=== PATIENT | male | born 1975 | race African-American/Black ===

== ENCOUNTER 2018-11-26 01:26 | Inpatient (IN) | payer OTHER ==
[~2018-11-26] VITALS: Ht 167.6 cm; Wt 149.7 kg
--- NOTE | ~2018-11-26 | HC ---
[facility] [place] [address] CONSULTATION Name: RADNAL PITT Room #: 200-I ADM IN M.R.#: [id number] Admission: 11/26/18 ������������������ Attend Phys: Liborio Wolf MD Discharge: ������������������ Date of : 79 Report #: [id number] THIS REPORT FOR: //name// CC: [facility] physician/PCP Liborio Wolf REASON FOR THE CONSULTATION: Elevated creatinine. REASON FOR THE PRESENTATION: Right-sided chest pain. HISTORY OF PRESENT ILLNESS: A 43-year-old with past medical history of hypertension that seems to be not under well control. He presented with shortness of breath and right-sided chest pain that started a few days before his presentation. This has progressively worsened. This was associated with cough. No reported hemoptysis. No previous similar episodes. No fever, no chills. No lower extremity swelling. No known cardiac history. No relieving or aggravating factors. The patient was found to have a pulmonary embolism and was admitted for further evaluation. In terms of renal function, the patient's creatinine on presentation was 2.2. He was told by his primary care physician that he did have some kidney problems 2 years ago. He had not been following up with his primary care physician regarding those issues. I am being consulted to manage his chronic kidney disease. No U/A is available. CT scan from yesterday did not reveal any kidney-related imaging issues. PAST MEDICAL HISTORY: 1. Hypertension. 2. Right lower extremity fracture. MEDICATIONS: 1. Hydrochlorothiazide. 2. Losartan. SOCIAL HISTORY: He denies drug or alcohol abuse. ALLERGIES: PENICILLIN. FAMILY HISTORY: Significant for hypertension. REVIEW OF SYSTEMS: GENERAL: No fever or chills. CARDIOVASCULAR: Significant for chest pain and shortness of breath. PULMONARY: Significant for cough and no hemoptysis. GASTROINTESTINAL: No nausea or vomiting. GENITOURINARY: No frequency, no urgency. MUSCULOSKELETAL: Occasional arthralgias and myalgias. SKIN: No rash or ulcerations. NEUROLOGIC: No headache, no dizziness. [facility] [address] [place] [address] CONSULTATION Name: RANDAL PITT [facility] Room #: 200-I [facility] IN .R.#: [id number] Admission: 11/26/18 ������������������ Attend Phys: Liborio Wolf MD Discharge: ������������������ Date of : 79 Report #: [id number] PHYSICAL EXAMINATION: GENERAL: He is alert, oriented, in no apparent distress. VITAL SIGNS: Blood pressure is 147/101. HEAD AND NECK: No jugular venous distention. CHEST: Decreased air entry bilaterally. CARDIOVASCULAR: No rub detected. ABDOMEN: Soft, nontender. EXTREMITIES: Lower extremities, no edema. LABORATORY DATA: Laboratory values reviewed. Hemoglobin is 11.7. Sodium is 140, creatinine is down to 1.7. ASSESSMENT, IMPRESSION AND PLAN: 1. Pulmonary embolism. 2. Chronic kidney disease. 3. Uncontrolled hypertension. 4. It does look like that the patient has evidence of chronic kidney disease due to uncontrolled hypertension. 5. Appropriate workup will be initiated. 6. Pulmonary embolism management. 7. Continue to hold his losartan for now. 8. Ultimately, will need to be back on losartan and hydrochlorothiazide. 9. Discontinue IV fluids. 10. Salt restrictions. 11. Cardiac echo. 12. We will continue to follow along. ��������������������������������������������� ���������������������������������������� By: ��������������������������������������������� 0821 0037 Joel Becerril MD /nt
[2018-11-26 01:36] VITALS: BP 165/90
[2018-11-26 02:25] LABS: ABSOLUTE NEUTROPHILS 5.8 thou/uL (1.4-8.2); BASOPHILS 0.8 % (0.0-2.0); EOSINOPHILS 0.8 % (0.0-3.0); HEMATOCRIT 36.5 % (42.0-52.0); HEMOGLOBIN 12.3 gm/dL (14.0-18.0); LYMPHOCYTES 17.1 % (24.0-44.0); MCH 29.1 pg (26.0-34.0); MCHC 33.8 g/dL (28.0-37.0); MCV 86.1 fL (80.0-100.0); MONOCYTES 9.6 % (1.0-8.0); PLATELET COUNT 228 thou/uL (150-400); POLYS 71.7 % (36.0-66.0); RBC 4.24 mil/uL (4.50-6.00); RDW 14.4 % (10.5-14.5); WBC 8.1 thou/uL (4.0-11.0)
[2018-11-26 02:51] LABS: BUN 22 mg/dL (7-18); CALCIUM 9.5 mg/dL (8.5-10.1); CO2 27 mmol/L (21-32); CREATININE 2.2 mg/dL (0.7-1.3); GLUCOSE 126 mg/dL (74-106); LIPASE 116 U/L (73-393)
[2018-11-26 03:06] LABS: ANION GAP 10 mmol/L (7-16); CHLORIDE 101 mmol/L (98-107); POTASSIUM 3.3 mmol/L (3.5-5.1); SODIUM 138 mmol/L (136-145); TROPONIN-I <0.06 ng/mL (<0.06)
[2018-11-26 05:46] LABS: PROTIME 9.3 Seconds (9.3-11.4)
[2018-11-26] MEDS ORDERED: HYDROCHLOROTHIA25 M2 PO (06:19)
[2018-11-26] MEDS ORDERED: COZAAR 25 MG TA25 M1 PO (06:55)
[2018-11-26 08:52] LABS: HEMATOCRIT 34.5 % (42.0-52.0); HEMOGLOBIN 11.7 gm/dL (14.0-18.0); MCH 28.9 pg (26.0-34.0); MCHC 33.9 g/dL (28.0-37.0); MCV 85.1 fL (80.0-100.0); RBC 4.05 mil/uL (4.50-6.00); RDW 14.4 % (10.5-14.5)
[2018-11-26 12:53] VITALS: BP 169/81
[2018-11-26 13:29] VITALS: BP 172/85
--- NOTE | 2018-11-26 15:00 | NUR ---
PT ARRIVED ABOUT 15-20 MIN PRIOR, SETTLED IN, TELE ON, IN GOOD SPIRITS EXCEPT PAIN IN ABD WHEN HE LAUGHS. CRITICAL CALLED, CALLED RX FOR THE HEP FLOW SHEET, WILL ENTER THE LAB FOR SIX HOUR THIS EVENING AND LET NIGHT NURSE KNOW. PT IS A&0X4, PROVIDED TWO URINALS FOR EASE AND WILL KEEP UP ON PAIN MEDICATION, NPO AT THIS TIME. ENCOURAGED HIM TO USE CALL LIGHT FOR ANY NEEDS
[2018-11-26] MEDS ORDERED: TYLENOL325 MG PO (15:35)
[2018-11-26 19:50] VITALS: BP 215/98
[2018-11-26 21:21] VITALS: BP 161/68
[2018-11-27 00:19] VITALS: BP 159/107
[2018-11-27 02:34] LABS: CALCIUM 8.6 mg/dL (8.5-10.1); CREATININE 1.7 mg/dL (0.7-1.3); POTASSIUM 4.1 mmol/L (3.5-5.1)
--- NOTE | 2018-11-27 03:54 | NUR ---
PATIENT BP ELEVATED AT SHIFT CHANGE.HYDRALAZINE GIVEN.PAIN FAIRLY CONTROLLED WITH DILAUDID.HEART RATE WENT DOWN IN THE 40'S BUT CAME BACK BRIEFLY.PATIENT DENIES CHEST PAIN OR ANY SOB.PATIENT CLAIMED THAT HE USES CPAP AT HOME.PULPER WAS INFORMED AND SHE ORDERED CPAP.PT ON HEPARIN GTT PER PROTOCOL.2 PTT'S ARE THERAPEUTIC.NEXT PTT IS IN THE AM.WILL MONITOR AND CONTINUE POC.
[2018-11-27 04:25] VITALS: BP 147/101
[2018-11-27 08:10] VITALS: BP 187/86
[2018-11-27 08:40] LABS: HEMATOCRIT 35.8 % (42.0-52.0); HEMOGLOBIN 11.9 gm/dL (14.0-18.0); MCHC 33.2 g/dL (28.0-37.0); MCV 87.2 fL (80.0-100.0); RBC 4.11 mil/uL (4.50-6.00); RDW 14.4 % (10.5-14.5); WBC 8.6 thou/uL (4.0-11.0)
--- NOTE | 2018-11-27 09:08 | EKG ---
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1975 Requested By: Dany Copeland Order Number: [id number] MD: Khris Grover Measurements Intervals [place] Rate: 85 P: 67 ND: 154 QRS: 53 QRSD: 98 T: 256 QT: 381 QTc: 453 Interpretive Statements Sinus rhythm Abnormal T, consider ischemia, inferior and lateral leads No previous ECG available for comparison Electronically Signed On 11-27-2018 9:08:08 CDT by Khris Grover [email or web address] ��������������������������������������������� <ELECTRONICALLY SIGNED> ���������������������������������������� By: Khris Grover MD, [facility] ��������������������������������������������� 11/27/18 [phone] 0159 Khris Grover MD, FACC /EPI
--- NOTE | 2018-11-27 09:13 | 2DMMODE ---
[facility] [address] [place] [address] 2 D/M-MODE ECHOCARDIOGRAM Name: RANDAL PITT Room #: 200-I ADM IN .R.#: [id number] ������������� Admission: 11/26/18 ������������� Attend Phys: Liborio Wolf, Discharge: ��� ������������� ��� Date of : 79 Date of Service: 11/27/18 0913 �� Report #: [id number] �������� ��������������������������������������������[id number] THIS REPORT FOR: //name// APPROVED REPORT Study performed: 11/27/2018 08:10:49 EXAM: Comprehensive 2D, Doppler, and color-flow Echocardiogram Patient Location: Bedside Room #: 200 Status: routine BSA: 2.47 HR: 60 bpm BP: 147/101 mmHg Rhythm: NSR Other Information Study Quality: Adequate/Technically Difficult Technically limited study due to body habitus. Indications Pulmonary Embolism Chest Pain Hypertension/HDD SOB 2D Dimensions RVDd: 36.71 mm IVSd: 16.98 (7-11mm) LVOT Diam: 22.26 (18-24mm) LVDd: 45.55 mm PWd: 16.25 (7-11mm) Ascending Ao: 33.33 (22-36mm) LVDs: 30.05 (25-40mm) Aortic Root: 32.08 mm Volumes Left Atrial Volume (Systole) Single Plane 4CH: 31.57 mL Single Plane 2CH: 32.66 mL LA ESV Index: 16.00 mL/m2 Aortic Valve AoV Peak Chacorta.: 1.56 m/s AO Peak Gr.: 9.69 mmHg LVOT Max P.81 mmHg LVOT Max V: 1.10 m/s LAW Vmax: 2.74 cm2 [facility] [address] [place] [address] 2 D/M-MODE ECHOCARDIOGRAM Name: RANDAL PITT Room #: 200-I [facility] IN [facility].#: [id number] ������������� Admission: 11/26/18 ������������� Attend Phys: Liborio Wolf, Discharge: ��� ������������� ��� Date of : 79 Date of Service: 11/27/18 0913 �� Report #: [id number] �������� ��������������������������������������������[id number] Mitral Valve E/A Ratio: 1.4 MV Decel. Time: 213.12 ms MV E Max Chacorta.: 0.90 m/s MV A Chacorta.: 0.63 m/s MV PHT: 61.80 ms IVRT: 115.34 ms Pulmonary Valve PV Peak Chacorta.: 1.15 m/s PV Peak Gr.: 5.32 mmHg Pulmonary Vein P Vein S: 0.51 m/s P Vein A: 0.29 m/s P Vein D: 0.58 m/s P Vein A Dur.: 115.3 msec P Vein S/D Ratio: 0.88 Left Ventricle The left ventricle is normal size. Regional wall motion is not well visualized but grossly normal. Moderate concentric left ventricular hypertrophy. The left ventricular systolic function is normal. The left ventricular ejection fraction is within the normal range. LVEF is 60-65%. Moderate diastolic dysfunction is present (pseudonormal filling). Right Ventricle The right ventricle is normal size. The right ventricular systolic function is normal. Atria The left atrium size is normal. Right atrium is at the upper limits of normal. Aortic Valve The aortic valve is normal in structure. No aortic regurgitation is present. There is no aortic valvular stenosis. Mitral Valve The mitral valve is normal in structure. There is no mitral valve regurgitation noted. No evidence of mitral valve stenosis. Tricuspid Valve The tricuspid valve is normal in structure. There is no tricuspid valve regurgitation noted. Unable to assess PA pressure. Pulmonic Valve [place] [id number] 2 D/M-MODE ECHOCARDIOGRAM Name: RANDAL IPTT UTE Room #: 200-I [facility] IN .R.#: [id number] ������������� Admission: 11/26/18 ������������� Attend Phys: Liborio Wolf, Discharge: ��� ������������� ��� Date of : 79 Date of Service: 11/27/18 0913 �� Report #: [id number] �������� ��������������������������������������������[id number] The pulmonary valve is normal in structure. Trace pulmonic regurgitation. Great Vessels The aortic root is normal in size. The inferior vena cava is not visualized. Pericardium There is no pericardial effusion. <Conclusion> The left ventricular systolic function is normal. Moderate concentric left ventricular hypertrophy. Regional wall motion is not well visualized but grossly normal. LVEF is 60-65%. Moderate diastolic dysfunction The aortic valve is normal in structure. No aortic regurgitation or stenosis The mitral valve is normal in structure. No mitral valve regurgitation Pulmonary artery systolic pressure could not be reliably ascertained. There is no pericardial effusion. ��������������������������������������������� <ELECTRONICALLY SIGNED> ���������������������������������������� By: Khris Grover MD, FACC ��������������������������������������������� 11/27/18912 2 2 Khris Grover MD, FACC /INF
[2018-11-27 11:30] VITALS: BP 161/79
[2018-11-27 16:30] VITALS: BP 192/103
--- NOTE | 2018-11-27 16:50 | NUR ---
PT CARE ASSUMED APPROX 1130. PT ALERT AND ORIENTED X4. REPORTS RIGHT SIDED CHEST PAIN-NON CARDIAC. REPORTS ADEQUATE PAIN MANAGEMENT WITH PRN MED. DENIES SOA BUT SATS WEREN'T MAINTAINED WNL WITH NC. PT ON CPAP SINCE CARE ASSUMED. BP ELEVATED AND NEW ORDER FOR NORVASC WAS WRITTEN. PT REPORTED ADVERSE REACTION TO MED AND REFUSED. DR ALCANTAR ON UNIT AT THAT TIME AND WAS NOTIFIED. HE DID NOT WANT TO SUB MED. ORDERS WERE TO DC NORVASC AND UTILIZE PRN MED. WILL F/U WITH ELEVATED BP AT THIS TIME. MEDICATION NOT ADDED TO ALLERGY LIST PER ORDER WELL. PT UP TO BSC WITH 1 ASSIST. HEP GTT MAINTAINED AT THERAPEUTIC DOSE THIS SHIFT. WARFARIN THERAPY ADDED TO POC THIS SHIFT. URINE UNCOLLECTED DUE TO PT NOT COMPLYING WITH COLLECTION METHODS. POOR APPETITE. NO DISTRESS NOTED AT THIS TIME.
--- NOTE | 2018-11-27 16:55 | NUR ---
met with patient, he has no health insurance. Admits with a PE. Gave patient safety net clinic information. Patients mom at bedside. Discussed outpatient eliquis or coumadin, cost benefit and lab draw information. Patient to discuss with his mother. Encouraged mother to call [employer] customer support while here at bedside to determine if eligible for increase support other than the $30 trial free month of eliquis.
[2018-11-27 18:12] LABS: URINE BILIRUBIN NEGATIVE (Negative); URINE BLOOD 2+ (Negative); URINE CLARITY CLEAR; URINE COLOR YELLOW; URINE GLUCOSE-RANDOM* NEGATIVE (Negative); URINE KETONES NEGATIVE (Negative); URINE LEUKOCYTES NEGATIVE (Negative); URINE NITRITE NEGATIVE (Negative); URINE PROTEIN (DIPSTICK) 2+ (Negative); URINE SPECIFIC GRAVITY 1.025 (1.005-1.035); URINE UROBILINOGEN 0.2 E.U./dl (0.2-1.0)
[2018-11-27 18:16] LABS: URINE CREATININE-RANDOM* 114.5 mg/dL
[2018-11-27 18:19] LABS: CASTS None Seen /LPF (None Seen); CRYSTALS None Seen /LPF (None Seen); SQUAMOUS None Seen /LPF (0-3); URINE RBC 0-2 Rare /HPF (0-2)
[2018-11-27 18:20] LABS: BACTERIA 1-9 Few /HPF (None Seen); URINE WBC None Seen /HPF (0-5)
[2018-11-27 20:17] VITALS: BP 187/89
[2018-11-28] VITALS (11 sets, daily range): BP systolic 139–188; BP diastolic 59–98
[2018-11-28 03:55] LABS: ALBUMIN 3.1 g/dL (3.4-5.0); CALCIUM 9.1 mg/dL (8.5-10.1); CREATININE 1.8 mg/dL (0.7-1.3); PHOSPHORUS 2.4 mg/dL (2.5-4.9); POTASSIUM 3.7 mmol/L (3.5-5.1)
--- NOTE | 2018-11-28 08:35 | NUR ---
ASSESSMENTS CHARTED. PATIENT HAD LOW GRADE FEVER DURING THE NIGHT. C/O HEADACHE. BLOOD PRESSURE WAS VERY HIGH, HYDRALAZINE WAS GIVEN TWICE FOR BLOOD PRESSURE LEVELS. ON HEPARIN DRIP DURING SHIFT.
--- NOTE | 2018-11-28 17:35 | NUR ---
PT CARE ASSUMED APPROX 0700. PT ALERT AND ORIENTED X4. DENIES PAIN AND SOA. REPORTS FEELING TIRED AND WEAK. BP INTERMITTENTLY ELEVATED. MANAGING BP WITH PRN MED. UP WITH P/T AMBULATING IN HALLWAYS. VSS AT THIS TIME. HEP GTT REMAINS TO POC. TITRATED 2U/KH/HR TWICE THIS SHIFT FOR SUBTHERAPEUTIC APTTs. NEXT APTT WILL BE COLLECTED AT 2200 FOR TITRATION DONE AT 1600. NO BLEEDING NOTED. PIV REPLACED TO RFA BY IV TEAM. PT'S MOM AT BEDSIDE EARLIER THIS SHIFT. BOTH DENY QUESTIONS OR CONCERNS REGARDING POC. MULTIPLE ADMINISTRATORS AND HOGSHEAD PRESS OPERATOR AT BEDSIDE THIS SHIFT FOR COMPLAINT F/U. COUMADIN THERAPY INITIATED YESTERDAY. PT TOLERATING. NO DISTRESS NOTED.
[2018-11-29 04:09] VITALS: BP 151/82
[2018-11-29 07:07] LABS: HEMATOCRIT 34.5 % (42.0-52.0); HEMOGLOBIN 11.8 gm/dL (14.0-18.0); MCH 29.1 pg (26.0-34.0); MCHC 34.3 g/dL (28.0-37.0); MCV 84.9 fL (80.0-100.0); RBC 4.07 mil/uL (4.50-6.00); RDW 14.4 % (10.5-14.5); WBC 6.8 thou/uL (4.0-11.0)
[2018-11-29 07:37] VITALS: BP 154/75
[2018-11-29 07:55] LABS: APTT 138.2 Seconds (24.5-32.8); PROTIME 10.8 Seconds (9.3-11.4)
--- NOTE | 2018-11-29 08:58 | NUR ---
ASSESSMENTS CHARGED. PATIENT REFLECTIVE OF HIS LIFE AND MEDICAL CONDITION. HAVING DIFFICULTY DIALING IN THE APTT FOR WRITTING.
[2018-11-29 09:34] LABS: CALCIUM 9.1 mg/dL (8.5-10.1); POTASSIUM 3.7 mmol/L (3.5-5.1)
--- NOTE | 2018-11-29 09:56 | NUR ---
Assess due to high BMI 53=extreme class III obesity. Admit with Pulmonary Emboli. Hx htn. PO intake improving, ate nearly 100% this am. Aware he is on heart healthy diet order. Stated he knows needs to make changes. Reviewed basics of healthy eating tips. Pt denied need for education materials. If discharged on warfarin, will need review of vitamin K drug/nutrient interaction. Low nutrition risk
[2018-11-29] MEDS ORDERED: ELIQUIS5 M1 PO (11:30)
[2018-11-29 11:44] VITALS: BP 148/81
--- NOTE | 2018-11-29 13:57 | NUR ---
SEPIDEH Olsen met with patient and mother. He completed a prescription assistance form to be initiated. he is inquiring into [facility] for patient. Patient has a f/u apt with [facility]. He is to dc home on Eloquis.Patient has 30 day card for intial elloquis. Patient reports he is homeless. He cannot stay with mother at bedside. 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 Offered homeless usp and patient declined. Patient has his own CPAP machine. Plan home independently.
[2018-11-29 17:13] VITALS: BP 153/78
[2018-11-29 17:15] VITALS: BP 167/69
--- NOTE | 2018-11-29 17:17 | NUR ---
ASESSMENT CHARTED - MEDS PER JUN - PT WITH ELEVATTED APPT THIS AM - HEPARIN OFF X 1 HOUR AND THEN RESTARTED AND 3 UNIT/KG LOWER = 16UNIT. PT UP AD MERLE IN ROOM - AMBULATED IN THE HALLS WITH PHYS THERAPY. ANGELA DIET AND FLUIDS WITH NO CO'S OF NAUSEA. NO CO'S OF PAIN. PT GIVEN ELIQUIS ORDERED AND HEPARIN TO CONTINUE X 4 HOURS POST MED. HEPARIN NO OFF AND PATIENT WITH IV AND MONITOR REMOVED HE IS DORIS TO GO HOME THIS EVEINING. PT SEN BY [employer] TO OBTAIN MEDICATION. PT SHOWERING AT THE PRESENT TIME AND WILL THEN BE ABLE TO LEAVE.
--- NOTE | 2018-11-29 18:14 | NUR ---
PT HOME THIS EVENING, INSTRUCTION RE HOME MEDS/CARE/FOLLOW UP GIVEN TO APTIENT - STATED UNDERSTANDING OF INSTRUCTION GIVEN. LEFT UNIT VIA WHEEL CHAIR - HOME VIA PVT VEHICLE ACCOMPANIED BY MOTHER.
== END 2018-11-29 18:00 | disposition home or self-care (01) | DRG 176 ==
LOC: ER 01:26 → 2N 05:02 → EROBS 05:02 → 2N 13:29 → ENTRNSPT 11-29 17:49 → 2N 11-29 18:00
PROVIDERS: Emergency Medicine; Hospitalist; ADMIT Internal Medicine
DX: I26.99 Other pulmonary embolism without acute cor pulmonale (principal); N17.9 Acute kidney failure, unspecified; N18.9 Chronic kidney disease, unspecified; I12.9 Hypertensive chronic kidney disease with stage 1 through stage 4 chronic kidney disease, or unspecified chronic kidney disease; G47.33 Obstructive sleep apnea (adult) (pediatric); E66.9 Obesity, unspecified; Z68.43 Body mass index [BMI] 50.0-59.9, adult; Z99.81 Dependence on supplemental oxygen; Z79.899 Other long term (current) drug therapy; Z88.0 Allergy status to penicillin
CPT/HCPCS: 10081

== ENCOUNTER 2018-12-10 20:05 | Emergency (ER) | payer OTHER ==
[~2018-12-10] VITALS: Ht 167.6 cm; Wt 142.9 kg
[~2018-12-10 20:05] MED LIST: COZAAR 25 MG TA25 M1 PO; ELIQUIS5 M1 PO; HYDROCHLOROTHIA25 M2 PO; TYLENOL325 MG PO
[2018-12-10] MEDS ORDERED: HYDROCODON-ACE1 EAC7 PO (20:22)
[2018-12-10 22:25] VITALS: BP 151/101
== END 2018-12-10 22:26 | disposition home or self-care (01) ==
LOC: ER 20:05
DX: S50.02XA Contusion of left elbow, initial encounter (principal); S20.211A Contusion of right front wall of thorax, initial encounter; I10 Essential (primary) hypertension; Z79.899 Other long term (current) drug therapy; Z86.711 Personal history of pulmonary embolism; V59.88XA Occupant (driver) (passenger) of pick-up truck or van injured in other specified transport accidents, initial encounter; Y93.89 Activity, other specified; Y92.413 State road as the place of occurrence of the external cause; Y99.9 Unspecified external cause status

== ENCOUNTER 2019-02-19 15:06 | Inpatient (IN) | payer OTHER ==
[~2019-02-19] VITALS: Ht 170.2 cm; Wt 152.0 kg
[~2019-02-19 15:06] MED LIST changes: +HYDROCODON-ACE1 EAC7 PO
[2019-02-19 15:12] VITALS: BP 222/119
[2019-02-19] MEDS ORDERED: CARVEDILOL12.5 MG PO (15:20)
[2019-02-19] MEDS ORDERED: ELIQUIS5 MG PO (15:56)
[2019-02-19 16:10] LABS: ABSOLUTE NEUTROPHILS 2.7 thou/uL (1.4-8.2); BASOPHILS 0.6 % (0.0-2.0); EOSINOPHILS 2.7 % (0.0-3.0); HEMATOCRIT 39.8 % (42.0-52.0); HEMOGLOBIN 13.5 gm/dL (14.0-18.0); MCH 29.3 pg (26.0-34.0); MCHC 33.9 g/dL (28.0-37.0); MCV 86.5 fL (80.0-100.0); MONOCYTES 5.4 % (1.0-8.0); PLATELET COUNT 166 thou/uL (150-400); POLYS 58.3 % (36.0-66.0); RDW 14.3 % (10.5-14.5); WBC 4.6 thou/uL (4.0-11.0)
[2019-02-19 16:18] LABS: CALCIUM 9.3 mg/dL (8.5-10.1); POTASSIUM 3.8 mmol/L (3.5-5.1)
[2019-02-19 16:26] LABS: ALBUMIN 3.3 g/dL (3.4-5.0); MAGNESIUM 2.2 mg/dL (1.8-2.4); TOTAL BILIRUBIN 0.5 mg/dL (<0.1-1.0); TOTAL PROTEIN 7.5 g/dL (6.4-8.2); TROPONIN-I 0.06 ng/mL (<0.06)
[2019-02-19 17:21] LABS: APTT 29.9 Seconds (24.5-32.8)
--- NOTE | 2019-02-19 19:22 | NUR ---
96 ML OF OMNIPAQUE INTO TISSUES AROUND 1910. PHYSICIAN AWARE, ICE TO AREA PT HAS NOT COMPLAINED OF PAIN, JUST TENDERNESS
[2019-02-19 22:18] VITALS: BP 180/97
[2019-02-19 23:25] VITALS: BP 179/73
--- NOTE | 2019-02-19 23:28 | NUR ---
VAT CONSULTED FOR A PIV FOR A CTA. 20G INFILTRATED IN CT AFTER BLOOD RETURN WAS VERIFIED BY THE VALUE ENGINEER AND MYSELF PRIOR TO CT. PLACED ANOTHER 20G IN RUABASILIC WITH US BUT PT VESSELS EXTREMELY DEEP AND DECIDED TO OTW EXCHANGE PIV FOR A MIDLINE FOR STABLE ACCESS. PT HAS HAD PE'S DX IN THE PAST X2 AND PT WOULD NEED GOOD ACCESS IF A HEPARIN GTT NEEDED. PT ANGELA WELL.
[2019-02-20 02:21] VITALS: BP 164/61
--- NOTE | 2019-02-20 02:31 | NUR ---
PT ADMITED FORM ER AROUND 2330. ADMISSION COMPLETE/MED RECONCIL. PT DENIES CP, N/V, DIZZINESS, SOA. STATES PAIN AT TIMES IN LOWER LEGS. BP ELEVEATED SEE VITALS. PT STATED WEARS CPAP HS. ADMISSIONS OFFICER NOTIFIED, HYDRALYZINE GIVEN PER EMAR AND CPAP ORDERED. PT VOIDING PER URINAL. STEADY. FOLLOWING TROPONINS. WILL CONTINUE TO MONITOR AND WITH POC.
[2019-02-20 03:33] LABS: CHOLESTEROL 247 mg/dL (<200); HDL CHOLESTEROL 48 mg/dL (>40); LDL CHOLESTEROL 145 mg/dL (<100); TC:HDL 5.1 Ratio (Not establshd); TRIGLYCERIDE 272 mg/dL (<150); VLDL 54 mg/dL (<40)
[2019-02-20 03:56] LABS: SERUM ASSESSMENT Clear
[2019-02-20 06:15] VITALS: BP 154/90
[2019-02-20 07:14] VITALS: BP 160/88
[2019-02-20 11:16] VITALS: BP 149/84
--- NOTE | 2019-02-20 11:46 | 2DMMODE ---
[facility] [place] [address] 2 D/M-MODE ECHOCARDIOGRAM Name: RANDAL PITT Room #: 200-I ADM IN .R.#: [id number] Admission: 02/19/19 Attend Phys: Tahir Albert MD Discharge: Date of : 79 Report #: [id number] THIS REPORT FOR: //name// APPROVED REPORT Study performed: 02/20/2019 09:39:13 EXAM: Comprehensive 2D, Doppler, and color-flow Echocardiogram Patient Location: Echo lab Status: routine BSA: 2.52 HR: 79 bpm BP: 160/88 mmHg Rhythm: NSR Other Information Study Quality: Adequate Technically limited study due to body habitus. Indications Chest Pain 2D Dimensions IVSd: 14.81 (7-11mm) LVOT Diam: 21.91 (18-24mm) LVDd: 49.17 mm PWd: 15.35 (7-11mm) LVDs: 29.40 (25-40mm) Left Ventricle The left ventricle is normal size. There is normal LV segmental wall motion. Moderate concentric left ventricular hypertrophy. The left ventricular systolic function is normal. The left ventricular ejection fraction is within the normal range. LVEF is 60-65%. Atria The left atrium size is normal. The right atrium size is normal. Aortic Valve The aortic valve is normal in structure. Mitral Valve The mitral valve is normal in structure. [facility] [address] [place] [address] 2 D/M-MODE ECHOCARDIOGRAM Name: RANDAL PITT Room #: 200-I ADM IN M.R.#: [id number] Admission: 02/19/19 Attend Phys: Tahir Albert MD Discharge: Date of : 79 Report #: [id number] Tricuspid Valve The tricuspid valve is normal in structure. There is no tricuspid valve regurgitation noted. Unable to assess PA pressure. Pulmonic Valve The pulmonary valve is normal in structure. Mild pulmonic regurgitation. Great Vessels The inferior vena cava is not well visualized. Pericardium There is no pericardial effusion. There is no pleural effusion. <Conclusion> Limited study The left ventricular systolic function is normal. There is normal LV segmental wall motion. Moderate concentric left ventricular hypertrophy. LVEF is 60-65%. The aortic valve is normal in structure. The mitral valve is normal in structure. There is no pericardial effusion. <ELECTRONICALLY SIGNED> By: Khris Grover MD, FACC 02/20/19 1146 1146 114 Khris Grover MD, FACC /INF
--- NOTE | 2019-02-20 13:53 | EKG ---
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 : 1975 Requested By: Krystin Dominguez Order Number: [id number] MD: Reg Gonzalez Measurements Intervals [place] Rate: 81 P: 66 MS: 166 QRS: 62 QRSD: 95 T: 241 QT: 405 QTc: 470 Interpretive Statements Sinus rhythm Left atrial enlargement Abnormal T, consider ischemia, diffuse leads Compared to ECG 11/26/2018 01:59:00 Atrial abnormality now present T-wave abnormality still present Possible ischemia still present Electronically Signed On 02-20-2019 13:53:23 CDT by Reg Gonzalez [email or web address] <ELECTRONICALLY SIGNED> By: Reg Gonzalez MD 02/20/19 1353 1544 1544 Reg Gonzalez MD /EPI
--- NOTE | 2019-02-20 14:03 | NUR ---
FAXED FACE SHEET TO JELENA AT [facility] RECEIVED CONFIRMATION TO HELP WITH MEDICAID APPLICATION. DP TO FOLLOW.
--- NOTE | 2019-02-20 15:21 | NUR ---
Met with patient who was at [facility] [place]. Patient admits with dyspnea and edema. He reports he is homeless, offered shelters and [facility] but patient declined reports he is staying in a yazidism. Patient has car in parking lot of hospital. Patient wears a CPAP and has with him. He has been seen at [facility] and plans f/u at [facility]. [facility] [employer] resource guide alerted [employer] with see patient [place]. Patient reports he has applied for disability. 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 [employer] following for dc planning.
[2019-02-20 16:03] VITALS: BP 161/82
--- NOTE | 2019-02-20 18:51 | NUR ---
PT VOIDED WELL AFTER LASIX TODAY. PT ON AND OFF CPAP INDEPENDENTLY WHEN SLEEPING. NO COMPLAINTS.
[2019-02-20 19:56] VITALS: BP 133/71
[2019-02-20 23:06] LABS: GLYCOHEMOGLOBIN (HGB A1C) 5.4 % (4.8-5.6)
[2019-02-21 01:01] VITALS: BP 155/94
--- NOTE | 2019-02-21 03:38 | NUR ---
ASSESSMENT CHARTED. VSS. DENIES PAIN, SOA, DIZZINESS, N/V. AD MERLE STEADY TO BATHROOM. BILAT LE EDEMA IMPROVED FROM PREVIOUS NIGHT. PT STATED TRYING HARD TO RESTRICT FLUIDS. CPAP HAS. WILL CONTINUE TO MONITOR AND WITH POC.
[2019-02-21 04:00] VITALS: BP 150/83
[2019-02-21 04:37] LABS: CALCIUM 9.1 mg/dL (8.5-10.1); CREATININE 2.4 mg/dL (0.7-1.3); POTASSIUM 3.4 mmol/L (3.5-5.1)
[2019-02-21 08:03] VITALS: BP 143/66
[2019-02-21 11:15] VITALS: BP 157/75
[2019-02-21] MEDS ORDERED: CARVEDILOL25 MG PO (11:33)
[2019-02-21] MEDS ORDERED: NORVASC10 MG PO (11:33)
--- NOTE | 2019-02-21 18:22 | NUR ---
ASSUMED CARE OF PT AT SHIFT CHANGE. ASSESSMENTS CHARTED. MEDS GIVEN PER JUN. VSS. A&OX4. NO C/O PAIN, SOA OR CHEST PAIN. PT ON RA. USES CPAP AT NIGHT. UP AD MERLE. PT ON 1500 ML FLUID RESTRICTION. STAYING UNDER 1000 DURING DAY. WILL CONTINUE TO MONITOR AND FOLLOW POC.
[2019-02-21 21:03] VITALS: BP 152/90
[2019-02-22 05:52] VITALS: BP 131/68
--- NOTE | 2019-02-22 06:01 | NUR ---
PT RESTING QUIETLY IN BED THRU THE NOC, W/O C/O PAIN, REMAINS ON TA, VSS, CON'T WITH 1500 FR, VOIDING PER URINAL, HOPING TO GO HOME SOON, WILL CON'T TO MONITOR PER PPOC.
[2019-02-22 06:56] LABS: ALBUMIN 3.1 g/dL (3.4-5.0); CALCIUM 8.8 mg/dL (8.5-10.1); CREATININE 2.3 mg/dL (0.7-1.3); PHOSPHORUS 4.4 mg/dL (2.5-4.9); POTASSIUM 3.6 mmol/L (3.5-5.1)
[2019-02-22 07:15] VITALS: BP 150/88
[2019-02-22] MEDS ORDERED: KLOR-CON M2020 MEQ PO (10:02)
[2019-02-22] MEDS ORDERED: LASIX 40 MG TAB40 MG PO (10:02)
[2019-02-22 10:40] VITALS: BP 150/88
--- NOTE | 2019-02-22 10:59 | NUR ---
PATIENT GIVEN 4 SCRIPTS TO TAKE HOME AT DISCHARGE. 2 ARE AMLODIPINE 10 MG 1 TAB DAILY, CARVEDILOL 25MG 1 TAB 2X A DAY. CM WILL PAY FOR THIS SCRIPT 20.91. 2 MORE SCRIPTS BEING FILLED WHICH WAS A LATE ENTRY BY DR THOMSON, LASIX 40 MG, AND POTASSIUM TABLETS. PATIENT WILL RECEIVE MEDICATIONS AT TIME OF DISCHARGE FROM NURSE. CM WILL PAY FOR THESE MEDS ALSO. PT HAS HIS PERSONAL VEHICLE IN ER PARKING AREA TO DRIVE HOME. [facility]
[2019-02-22 11:10] VITALS: BP 140/79
--- NOTE | 2019-02-22 13:37 | NUR ---
PATIENTS SECOND SCRIPTS WERE 37.82 PAID BY ISAURA FELIZ PER RICA DIRECTOR.
--- NOTE | 2019-02-22 13:44 | NUR ---
Pt dc'd today via his car. Meds vouchered as noted. Pt to f/u at [facility]. case closed.
--- NOTE | 2019-02-22 13:47 | NUR ---
ASSUMED CARE PT AT SHIFT CHANGE. ASSESSMENT CHARTED. MEDS GIVEN PER JUN. PT ALERT AND ORIENTED, VSS, DENIES PAIN, O2 SATS WNL ON ROOM AIR, USES CPAP PRN. PT UP INDEPENDENTLY TOLERATING WELL. DC ORDERS ACKNOWLEDGED AND IMPLEMENTED. DC PAPERWORK DISCUSSED WITH PT. PRESCRIPTIONS GIVEN TO PT PER RIANNA FROM CASE MANAGEMENT. IV REMOVED, MIDLINE REMOVED, TELE REMOVED. CONFIRMED WITH PT THAT HE HAS A WAY TO GET HOME. PT LEFT UNIT WITH ALL BELONGINGS.
--- NOTE | 2019-02-24 12:11 | HC ---
[facility] [place] [address] CONSULTATION Name: RANDAL PITT Room #: 200-I [facility] IN M.R.#: [id number] Admission: 02/19/19 Attend Phys: Tahir Albert MD Discharge: 02/22/19 Date of : 79 Report #: [id number] THIS REPORT FOR: //name// CC: Tahir Albert [facility] physician/PCP REASON FOR CONSULTATION: Elevated creatinine. REASON FOR PRESENTATION: Lower extremity swelling. HISTORY OF PRESENT ILLNESS: A 43-year-old with the past medical history of pulmonary embolism and hypertension. There seems to be an issue with his compliance with the blood pressure medication. I evaluated him back in October of this year for the same issue. He was supposed to see us in the clinic. He did not follow up with us. At that time, he had a baseline creatinine of around 2.0. Listed amongst his medications at that time was hydrochlorothiazide and losartan. However, the patient tells me that he now is taking only carvedilol for his blood pressure. Had a creatinine value of 2.0 when he presented yesterday. CT angiogram was done with an acute kidney injury and the rising creatinine to 2.4. PAST MEDICAL HISTORY: 1. Hypertension. 2. Pulmonary embolism. 3. Stage 3 chronic kidney disease. 4. Sickle cell trait. 5. Obstructive sleep apnea. MEDICATIONS: Hydrochlorothiazide and losartan were discontinued. Currently, the patient is maintained on carvedilol, Eliquis, hydrocodone, and acetaminophen. FAMILY HISTORY: Significant for a mother with breast cancer and a sister with ovarian cancer. His dad was diabetic and hypertensive. SOCIAL HISTORY: He denies drug or alcohol abuse. REVIEW OF SYSTEMS: GENERAL: Significant for some weakness. CARDIOVASCULAR: No chest pain or palpitation. PULMONARY: No cough or hemoptysis. GASTROINTESTINAL: No nausea or vomiting. GENITOURINARY: No frequency and no urgency. MUSCULOSKELETAL: Lower extremity edema. NEUROLOGICAL: No headache and no dizziness. SKIN: No rash or ulcerations. [facility] [address] [place] [address] CONSULTATION Name: RANDAL PITT Room #: 200-I [facility] IN [facility].#: [id number] Admission: 02/19/19 Attend Phys: Tahir Albert MD Discharge: 02/22/19 Date of : 79 Report #: [id number] PHYSICAL EXAMINATION: GENERAL: Alert, oriented, and in no apparent distress. VITAL SIGNS: Blood pressure is 143/66. Temperature of 35.9. HEAD AND NECK: No jugular venous distention. CHEST: No crackles. CARDIOVASCULAR: Regular with no rub detected. ABDOMEN: Soft and nontender with no hepatosplenomegaly. LOWER EXTREMITIES: +3 edema. LABORATORY VALUES: Reviewed. Sodium is 140, potassium is 3.4, BUN is 18, and creatinine is 2.4. IMPRESSION AND PLAN: 1. Chronic kidney disease. 2. Hypertension. 3. Obstructive sleep apnea. 4. Hypokalemia. 5. Noncompliance. 6. Acute kidney injury. 7. The patient had received a CTA angiogram, which had caused him a rise in his creatinine from a baseline of around 1.8 to 2.4. 3. Continue with the carvedilol and Norvasc for now for his blood pressure control. 4. Salt restrictions. 5. We will wait for the kidney numbers to improve and initiate the patient back on an angiotensin receptor ezequiel and a thiazide diuretic. <ELECTRONICALLY SIGNED> By: Joel Becerril MD 02/24/19 1211 0910 1338 Joel Becerril MD /nt
== END 2019-02-22 12:21 | disposition home or self-care (01) | DRG 682 ==
LOC: ER 15:06 → 2N 21:26 → EROBS 21:26 → 2N 23:16
PROVIDERS: Nurse Practitioner; Nurse Practitioner Acute Care; Physician Assistant; ADMIT Hospitalist
PROC: 05H933Z Insertion of Infusion Device into Right Brachial Vein, Percutaneous Approach (ICD-10-PCS; principal; 2019-02-19)
DX: N17.9 Acute kidney failure, unspecified (principal); I50.33 Acute on chronic diastolic (congestive) heart failure; Z68.43 Body mass index [BMI] 50.0-59.9, adult; I13.0 Hypertensive heart and chronic kidney disease with heart failure and stage 1 through stage 4 chronic kidney disease, or unspecified chronic kidney disease; G47.33 Obstructive sleep apnea (adult) (pediatric); E87.6 Hypokalemia; N18.3 Chronic kidney disease, stage 3 (moderate); I16.0 Hypertensive urgency; E66.01 Morbid (severe) obesity due to excess calories; R73.9 Hyperglycemia, unspecified; Z60.2 Problems related to living alone; T50.8X5A Adverse effect of diagnostic agents, initial encounter; Y92.89 Other specified places as the place of occurrence of the external cause; Z86.711 Personal history of pulmonary embolism; Z88.0 Allergy status to penicillin; Z80.3 Family history of malignant neoplasm of breast; Z80.41 Family history of malignant neoplasm of ovary; Z83.3 Family history of diabetes mellitus; Z82.49 Family history of ischemic heart disease and other diseases of the circulatory system; Z91.19 Patient's noncompliance with other medical treatment and regimen; Z86.718 Personal history of other venous thrombosis and embolism
CPT/HCPCS: 10081; 27000

== ENCOUNTER 2019-03-31 05:36 | Emergency (ER) | payer OTHER ==
[~2019-03-31] VITALS: Ht 170.2 cm; Wt 152.0 kg
[~2019-03-31 05:36] MED LIST changes: +CARVEDILOL12.5 MG PO; +CARVEDILOL25 MG PO; +ELIQUIS5 MG PO; +KLOR-CON M2020 MEQ PO; +LASIX 40 MG TAB40 MG PO; +NORVASC10 MG PO
[2019-03-31 05:39] VITALS: BP 124/88
== END 2019-03-31 06:34 | disposition home or self-care (01) ==
LOC: ER 05:36
DX: L08.89 Other specified local infections of the skin and subcutaneous tissue (principal); R21 Rash and other nonspecific skin eruption; R60.0 Localized edema; I12.9 Hypertensive chronic kidney disease with stage 1 through stage 4 chronic kidney disease, or unspecified chronic kidney disease; N18.3 Chronic kidney disease, stage 3 (moderate); G47.33 Obstructive sleep apnea (adult) (pediatric); Z88.0 Allergy status to penicillin; Z88.8 Allergy status to other drugs, medicaments and biological substances; Z79.899 Other long term (current) drug therapy; Z86.711 Personal history of pulmonary embolism

== ENCOUNTER 2020-12-28 09:49 | Inpatient (IN) | payer OTHER ==
[~2020-12-28] VITALS: Ht 170.2 cm; Wt 155.1 kg
--- NOTE | ~2020-12-28 | EMS ---
[facility] [address] [place] [address] EMS Patient Care Report Name: RANDAL PITT Room #: 360-P ADM IN M.R.#: [id number] Admission: 12/28/20 Attend Phys: Cristal Gentile Discharge: Date of : 79 Report #: [id number] THIS REPORT FOR: //name// Report Transmitted: 12/29/2020 09:54 EMS Care Summary [place], [place]/[facility] Incident [id number] @ 12/28/2020 09:07 Incident Location [address] [address] Patient RANDAL PITT Male, 45 Years 1975 Patient Address [address] [address] Patient History Congestive Heart Failure (CHF), Patient Allergies No known allergies, Patient Medications None Reported, Chief Complaint sick Disposition Transported No Lights/Darling Dispatch Reason Sick Person Transported To [facility] Narrative PT seated unmasked in apt, A&O x3 states he was exposed to a COVID POS 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 Has had fever over 100*, felt weak, and a cough since [address] [address] EMS Patient Care Report Name: RANDAL PITT Room #: 360-P ADM IN M.R.#: [id number] Admission: 12/28/20 Attend Phys: Cristal Clark Krupa Discharge: Date of : 79 Report #: [id number] then. PT states he is unvaccinated. Advised him of COVID mitigation practices and he agreed walk down stairs with ems crew assistance. PT was secured to cot moved to ambulance cot secured in ambulance vitals and secondary assessment taken PT transported to hospital and handed over to hospital staff with out incident. Initial Vitals @09:43P: 82,R: 20,BP: 148/85,CO: 4,SpO2: 94, @09:25P: 84,R: 20,BP: 147/87,Pain: 0/10,GCS: 15,CO: 6,SpO2: 94,Revised Trauma: 12, @09:37P: 85,R: 20,BP: 145/84,Pain: 0/10,GCS: 15,CO: 5,SpO2: 96,Revised Trauma: 12, Assessments @09:21MENTAL:No Abnormalities,SKIN:No Abnormalities,HEENT:Head/Face: No Abnormalities,Eyes: No Abnormalities,Neck/Airway: No Abnormalities,LUNG SOUNDS:General: No Abnormalities,Left Upper: No Abnormalities,Right Upper: No Abnormalities,Left Lower: No Abnormalities,Right Lower: No Abnormalities,ABDOMEN:General: No Abnormalities,Left Upper: No Abnormalities,Right Upper: No Abnormalities,Left Lower: No Abnormalities,Right Lower: No Abnormalities,PELVIS//GI:No Abnormalities,EXTREMITIES:Left Arm: No Abnormalities,Right Arm: No Abnormalities,Left Leg: No Abnormalities,Right Leg: No Abnormalities,PULSE:NEURO:No Abnormalities,@09:27MENTAL:No Abnormalities,SKIN:No Abnormalities,HEENT:Head/Face: No Abnormalities,Eyes: No Abnormalities,Neck/Airway: No Abnormalities,LUNG SOUNDS:General: No Abnormalities,Left Upper: No Abnormalities,Right Upper: No Abnormalities,Left Lower: No Abnormalities,Right Lower: No Abnormalities,ABDOMEN:General: No Abnormalities,Left Upper: No Abnormalities,Right Upper: No Abnormalities,Left Lower: No Abnormalities,Right Lower: No Abnormalities,PELVIS//GI:No Abnormalities,EXTREMITIES:Left Arm: No Abnormalities,Right Arm: No Abnormalities,Left Leg: No Abnormalities,Right Leg: No Abnormalities,PULSE:NEURO:No Abnormalities, Impression Generalized Weakness Procedures @09:21BLS AssessmentResponse: Unchanged Timeline 09:05,Call Received 09:05,Dispatch Notified 09:07,Dispatched 09:09,En Route 09:19,On Scene 09:21,At Patient [address] [address] EMS Patient Care Report Name: RANDAL PITT Room #: 360-P [facility] IN .R.#: [id number] Admission: 12/28/20 Attend Phys: Cristal Gentile Discharge: Date of : 79 Report #: [id number] 09:21,BLS Assessment,Response: Unchanged 09:25,BP: 147/87 M,PULSE: 84,RR: 20 R,SPO2: 94 Ox,ETCO2: ,BG: ,PAIN: 0,GCS: 15, 09:37,BP: 145/84 M,PULSE: 85,RR: 20 R,SPO2: 96 Ox,ETCO2: ,BG: ,PAIN: 0,GCS: 15, 09:38,Depart Scene 09:43,BP: 148/85 M,PULSE: 82,RR: 20 R,SPO2: 94 Ox,ETCO2: ,BG: ,PAIN: ,GCS: , 09:44,At Destination 12:52,Call Closed Disclaimer v1.1 Copyright 2020 [employer] This EMS Care Summary contains data elements from the applicable legal record (which may be displayed differently). It is designed to provide pertinent information for the following purposes: continuity of care, clinical quality, and state data reporting. The complete legal record is available to ED staff and administrators of the receiving hospital in [employer] Patient Tracker. All data is provided "as is."
[2020-12-28 09:50] VITALS: BP 144/75
[2020-12-28 10:26] LABS: ABSOLUTE NEUTROPHILS 3.8 thou/uL (1.4-8.2); BASOPHILS 0.2 % (0.0-2.0); HEMATOCRIT 26.6 % (42.0-52.0); HEMOGLOBIN 9.2 gm/dL (14.0-18.0); LYMPHOCYTES 18.6 % (24.0-44.0); MCH 29.8 pg (26.0-34.0); MCHC 34.6 g/dL (28.0-37.0); MCV 85.9 fL (80.0-100.0); MONOCYTES 8.4 % (1.0-8.0); PLATELET COUNT 161 thou/uL (150-400); POLYS 72.8 % (36.0-66.0); RDW 13.2 % (10.5-14.5); WBC 5.2 thou/uL (4.0-11.0)
[2020-12-28 10:29] LABS: CALCIUM 6.4 mg/dL (8.5-10.1); CREATININE 15.9 mg/dL (0.7-1.3); POTASSIUM 3.5 mmol/L (3.5-5.1)
[2020-12-28 10:50] LABS: BE(vivo) -6.5 mmol/L (-2 to +3); HCO3 18.2 mmol/L (22.0-26.0); PCO2 VENOUS 33.3 mmHg (41.0-51.0); PO2 VENOUS 51.9 mmHg (35.0-45.0)
[2020-12-28 11:22] VITALS: BP 141/71
--- NOTE | 2020-12-28 13:01 | EKG ---
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 Supply Supervisor: ALEXANDRA SOMMERS : 1975 Requested By: Maya Cordova Order Number: [id number] MD: Khris Grover Measurements Intervals Epworth Rate: 83 P: 73 CT: 159 QRS: 85 QRSD: 86 T: -67 QT: 390 QTc: 459 Interpretive Statements Sinus rhythm Poor R wave progression Nonspecific T abnormalities, inferior leads Compared to ECG 02/19/2019 15:44:43 T-wave abnormality still present Electronically Signed On 12-28-2020 13:01:30 CDT by Khris Grover [email or web address] <ELECTRONICALLY SIGNED> By: Khris Grover MD, [facility] 12/28/20 1301 1043 1043 Khris Grover MD, FACC /EPI
[2020-12-28 15:02] VITALS: BP 136/71
[2020-12-28 16:58] LABS: URINE BILIRUBIN NEGATIVE (Negative); URINE BLOOD 3+ (Negative); URINE CLARITY CLEAR; URINE COLOR YELLOW; URINE GLUCOSE-RANDOM* NEGATIVE (Negative); URINE KETONES NEGATIVE (Negative); URINE LEUKOCYTES NEGATIVE (Negative); URINE NITRITE NEGATIVE (Negative); URINE PROTEIN (DIPSTICK) 3+ (Negative); URINE SPECIFIC GRAVITY 1.015 (1.005-1.035); URINE UROBILINOGEN 0.2 E.U./dl (0.2-1.0)
[2020-12-28 17:08] LABS: DIRECT BILIRUBIN < 0.1 mg/dL (<0.1-0.2); PHOSPHORUS 5.9 mg/dL (2.6-4.7); SGOT 6 U/L (15-37); SGPT 17 U/L (16-63); TOTAL BILIRUBIN 0.3 mg/dL (0.2-1.0); TOTAL PROTEIN 7.4 g/dL (6.4-8.2)
[2020-12-28 17:23] LABS: PROT/CREAT RATIO 10.9; URINE PROTEIN-RANDOM* 1747.5 mg/dL (<11.9)
[2020-12-28 17:27] LABS: SQUAMOUS 0-3 Few /LPF (0-3)
[2020-12-28 17:28] LABS: BACTERIA None Seen /HPF (None Seen); CASTS None Seen /LPF (None Seen); CRYSTALS None Seen /LPF (None Seen); URINE RBC 1-2 Rare /HPF (NONE SEEN); URINE WBC 1-5 Rare /HPF (NONE SEEN)
[2020-12-28 17:49] LABS: CALCIUM 6.3 mg/dL (8.5-10.1); CREATININE 16.4 mg/dL (0.7-1.3)
--- NOTE | 2020-12-28 18:27 | NUR ---
PT ADIMITTED FROM ER FOR POSITIVE COVID AND MARYANNE, PT IS A&OX4, PT IS ON O2 2L/MIN/NC, PT HAS SOB WITH ACTIVITIES, HOSPITAL DR , ID DR AND RENAL DR HAVE SEEING THE PATIENT, NEW ORDER RECEIVED, PT HAS STARTED IV ABX AND TREAT COVID MEDICATIONS, PT'S VS ARE STABLE, PT DENIES PAIN AND SOB BY THIS TIME.
[2020-12-28 19:20] VITALS: BP 151/66
[2020-12-29 02:59] VITALS: BP 134/73
--- NOTE | 2020-12-29 06:27 | HC ---
[facility] [address] CONSULTATION Name: RANDAL PITT Room #: 360-P ADM IN M.R.#: [id number] Admission: 12/28/20 Attend Phys: Cristal Gentile Discharge: Date of : 79 Report #: [id number] THIS REPORT FOR: cc: SHEREEN - No family physician/PCP FAM - No family physician/PCP Jose E Banda MD ~ DATE OF SERVICE: 12/28/2020 INFECTIOUS DISEASE CONSULTATION ATTENDING PHYSICIAN: Dr. Gentile. REASON FOR EVALUATION: COVID-19 infection, complicated by pneumonitis. The patient with severe renal failure. HISTORY OF PRESENT ILLNESS: The patient examined. This is a 45-year-old gentleman with known history of some renal insufficiency over the course of the last few days with fairly abrupt onset on and developed fevers. It sounds like perhaps rigors with associated dyspnea that has progressed. Also noted to have diminished urine output, poor p.o. intake. He notes he has had weight loss in the interim and he suspects he had been exposed to COVID and it was indeed confirmed to be positive on testing here and was noted to have a markedly elevated creatinine to 15.9. Review of his history, it was up slightly in 2019 at 2.0. D-dimer was mildly elevated at 1.08. Chest x-ray did show mild patchy bilateral interstitial and airspace opacities. Procalcitonin 0.59. He is scheduled to undergo dialysis. He is given a dose of ceftriaxone. Currently, he is not requiring supplemental oxygen per nasal cannula. Temperature earlier today was 103.1, low. Although he has ____ in the 70s-80s and blood pressure was 150/88. ALLERGIES: Listed to PENICILLIN. He is not sure of the reaction and states he was told ____ when he was a child. Allergy to LISINOPRIL as well. CURRENT MEDICATIONS: Include dexamethasone, ceftriaxone. PAST MEDICAL HISTORY: Hypertension, chronic renal insufficiency, history of PEs. SOCIAL HISTORY: Nonsmoker, no ethanol, no illicit drug use. FAMILY HISTORY: Noncontributory. REVIEW OF SYSTEMS: Otherwise, unremarkable. PHYSICAL EXAMINATION: GENERAL: He is alert, cooperative, diminished affect. States he is trying to [address] [address] CONSULTATION Name: RANDAL PITT Room #: [address] [place] [address] IN M.R.#: [id number] Admission: 12/28/20 Attend Phys: Cristal Gentile Discharge: Date of : 79 Report #: [id number] process this. He is obese, yyxs-ly-imninscu distress. He is generally lucid. VITAL SIGNS: Temperature 103.1, pulse 86, blood pressure 150/88, respirations 17, saturation 95% on room air. HEENT: Normocephalic. Extraocular muscles intact. NECK: Supple. LUNGS: Diminished breath sounds. Few crackles at the bases. HEART: Distant, regular. I do not appreciate a murmur. ABDOMEN: Obese, mildly firm, nontender. EXTREMITIES: Some pedal edema. GENITOURINARY AND RECTAL: Deferred. LABORATORY DATA: As described above. Electrolytes: Sodium 140, potassium 3 5, chloride 102, bicarbonate 21, anion gap of 17. BUN and creatinine 73 and 15.9. Estimated GFR of 4. CBC: White count 5.2, H and H 9.2 and 26.6, platelets of 161. ASSESSMENT AND PLAN: COVID-19 infection, complicated by pneumonitis and respiratory failure, most likely suspect acute on chronic renal failure, now requiring emergent dialysis. We will continue empiric therapy given the risk of secondary bacterial pneumonitis. In addition, I will initiate remdesivir ____ after trying dialysis. Continue dexamethasone, add vitamins. Oxygen support as required. Blood cultures in progress. We will check additional diagnostic testing. <ELECTRONICALLY SIGNED> By: Jose E Banda MD 12/29/20 0627 1409 2214 Jose E Banda MD /nt
[2020-12-29 06:43] LABS: ANION GAP 20 mmol/L (7-16); BUN 79 mg/dL (7-18); CALCIUM 6.7 mg/dL (8.5-10.1); CHLORIDE 100 mmol/L (98-107); CO2 18 mmol/L (21-32); CREATININE 16.7 mg/dL (0.7-1.3); DIRECT BILIRUBIN < 0.1 mg/dL (<0.1-0.2); GLUCOSE 105 mg/dL (74-106); PHOSPHORUS 5.4 mg/dL (2.6-4.7); POTASSIUM 3.9 mmol/L (3.5-5.1); SGOT 13 U/L (15-37); SGPT 16 U/L (16-63); SODIUM 138 mmol/L (136-145); TOTAL BILIRUBIN 0.2 mg/dL (0.2-1.0); TOTAL PROTEIN 7.6 g/dL (6.4-8.2)
[2020-12-29 08:15] VITALS: BP 151/86
[2020-12-29 09:06] LABS: HIV ANTIBODY Non Reactive (Non Reactive)
--- NOTE | 2020-12-29 13:33 | NUR ---
INITIAL ASSESSMENT: SW reviewed chart and spoke with nursing and attending physician. Pt was admitted due to MARYANNE. Pt placed in Enhanced Isolation due to having positive COVID test. Pt has not received a COVID vaccine. Pt is febrile and on 2L of O2. Pt is on IV abx and IV steorids. Remdesivir started. Pt may need dialysis in the future. SW placed call to pt's room. No answer. SW left voice message on listed contact number for pt ([phone]) to obtain info and discuss discharge planning. Pt does not have health insurance. [employer] to screen pt and assist with Medicaid application. SW is following to assist as needed with discharge planning.
[2020-12-29 15:50] VITALS: BP 152/81
--- NOTE | 2020-12-29 16:45 | NUR ---
RN ASSUMED PT'S CARE AT 0700AM, PT IS A&OX4, PT IS ON O2 2-4L/MIN/NC, AND PT IS ON BIPAP O2 35% WHEN PT IS SLEEPING, PT'S O2SAT STAYS AT 92-98%, PT HAS SOB WITH ACTIVITIES, PT GETS UP TO CHAIR WITH ASSIST, PT IS CONTINUING IV ABX AND TREAT COVID MEDICATIONS, PT'S VS ARE STABLE BY THIS TIME.
[2020-12-29 17:06] LABS: HEP B SURFACE Ab(ANTI-HBS Reactive (()); HEPATITIS B SURFACE AG Negative (Negative)
[2020-12-29 20:21] VITALS: BP 131/80
[2020-12-30 04:12] VITALS: BP 158/95
[2020-12-30 05:42] LABS: ANION GAP 20 mmol/L (7-16); BUN 92 mg/dL (7-18); CALCIUM 7.4 mg/dL (8.5-10.1); CHLORIDE 98 mmol/L (98-107); CO2 18 mmol/L (21-32); DIRECT BILIRUBIN < 0.1 mg/dL (<0.1-0.2); GLUCOSE 131 mg/dL (74-106); PHOSPHORUS 7.5 mg/dL (2.6-4.7); POTASSIUM 4.4 mmol/L (3.5-5.1); SGOT 16 U/L (15-37); SGPT 18 U/L (16-63); SODIUM 136 mmol/L (136-145); TOTAL BILIRUBIN 0.2 mg/dL (0.2-1.0); TOTAL PROTEIN 8.1 g/dL (6.4-8.2)
[2020-12-30 06:12] LABS: CREATININE 18.7 mg/dL (0.7-1.3)
[2020-12-30 07:48] VITALS: BP 123/87
--- NOTE | 2020-12-30 14:27 | NUR ---
SW reviewed chart and spoke with nursing and attending physician. Pt remains in Enhanced Isolation due to COVID. Pt is afebrile and on 4L of O2. Pt is on IV steroids and IV abx. Pt has orders for kidney bx and placement of dialysis catheter. SW placed call to pt's room. No answer. Plan is for pt to discharge home when medically stable. MATTEO is following to assist as needed with discharge planning.
[2020-12-30 14:46] LABS: APTT 35.4 Seconds (24.5-32.8); INR 1.02; PROTIME 11.1 Seconds (10.5-12.1)
[2020-12-30 16:45] VITALS: BP 136/86
--- NOTE | 2020-12-30 17:00 | NUR ---
RN ASSUMED PT'S CARE AT 0700AM, PT IS A&OX4, PT IS O2 2-4L/MIN/NC , AND PT IS ON BIPAP WITH O2 35% WITH SLEEPING, PT IS ON BIPAP AT MOST OF TIME TODAY, PT IS TIRED , PT IS CONTINUING IV ABX AND TREAT COVID MEDICATIONS, PT IS GOING TO HAVE PROCEDURES TOMORROW ( US KIDNEY BIOPSY AND IR IV TUNNELED CVC PLACEMENT), PT HAS SIGNED CONSENTS, RN HAS UPDATED PT'S INFORMATION TO PT'S FATHER .
[2020-12-30 20:11] VITALS: BP 132/83
[2020-12-31 04:26] VITALS: BP 150/96
--- NOTE | 2020-12-31 05:03 | NUR ---
PT MAKING PROGRESS TOWARDS GOALS. LUNGS DIMINISHED THROUGHOUT. ON BIPAP FOR INTIAL ASSESSMENT. PT ABLE TO REMOVE BIPAP, STAND TO URINATE THEN SPEAK W/O BECOMING SOA. NOTED O2 SAT DURING THAT TIME AT 92%.
[2020-12-31 12:07] LABS: ANA INTERPRETATION Negative (Negative)
--- NOTE | 2020-12-31 14:38 | NUR ---
DISCHARGE NOTE: MATTEO reviewed chart and spoke with nursing and attending physician. Pt remains in Enhanced Isolation due to COVID. Pt is afebrile and off O2. Discharge orders completed. MATTEO faxed face sheet to [facility]. Spoke with Gila to notify that Case Mgmt will vouch for meds. Total $14.68. MATTEO provided pt's nurse with Health resource Guide, [facility] list and prescription card to provide pt with discharge ppwk. Pt was discharged prior to SW call. Pt had transportation home. No additional SW needs identified at this time, but is available to assist should needs arise.
--- NOTE | 2020-12-31 15:06 | NUR ---
MATTEO reviewed chart and spoke with nursing and attending physician. Pt remains in Enhanced Isolation due to COVID. Pt is afebrile and on 4L of O2 via NC. Pt has been using bipap at . Pt is on IV abx, IV steroids, IV lasix and Remdesivir. Pt to have dialysis catheter placed today with plans to start dialysis tomorrow. MATTEO discussed case with tumbler machine operator. Recommendation made to start referral for establishing outpatient dialysis. Pt does not have health insurance. MATTEO spoke with Saima in intake at [facility]. Faxed clinical info to Saima for review. MATTEO placed call to pt's room. No answer. MATTEO is following to assist as needed with discharge planning.
[2020-12-31 16:28] VITALS: BP 141/95
[2020-12-31 17:51] LABS: ANION GAP 20 mmol/L (7-16); BUN 119 mg/dL (7-18); CALCIUM 6.3 mg/dL (8.5-10.1); CHLORIDE 97 mmol/L (98-107); CO2 20 mmol/L (21-32); DIRECT BILIRUBIN < 0.1 mg/dL (<0.1-0.2); GLUCOSE 183 mg/dL (74-106); POTASSIUM 4.8 mmol/L (3.5-5.1); SGOT 20 U/L (15-37); SGPT 26 U/L (16-63); SODIUM 137 mmol/L (136-145); TOTAL BILIRUBIN 0.3 mg/dL (0.2-1.0)
[2020-12-31 17:56] LABS: CREATININE 20.9 mg/dL (0.7-1.3)
--- NOTE | 2020-12-31 18:23 | NUR ---
ASSUMED PATIENT CARE AT 0700. PATIENT ON 4L/NC/ CPAP 35% FIO2. WILL NPO AFTER MIDNIGHT TO HAVE KINEY BIOPSY. VSS. WILL KEEP MONITOR.
[2020-12-31 19:32] VITALS: BP 151/100
[2021-01-01] VITALS (8 sets, daily range): BP systolic 135–158; BP diastolic 69–97
--- NOTE | 2021-01-01 06:00 | NUR ---
PT ON BIPAP AT 35% FIO2 WITH INITIAL ASSESSMENT. ON/OFF BIPAP OVERNIGHT. SPOKE WITH PT OVER SEVERAL MINUTES WITH BIPAP OFF AND ON ROOM AIR. O2 SAT WITH BIPAP WAS 95%. PT REMOVED BIPAP TO TAKE HS MEDICATIONS AND WE BRIEFLY SPOKE. O2 SAT ON ROOM AIR DROPPED TO 90-91%.
[2021-01-01 11:08] LABS: ALBUMIN 2.9 g/dL (3.4-5.0); ANION GAP 23 mmol/L (7-16); BUN 134 mg/dL (7-18); CALCIUM 6.1 mg/dL (8.5-10.1); CHLORIDE 98 mmol/L (98-107); CO2 17 mmol/L (21-32); DIRECT BILIRUBIN < 0.1 mg/dL (<0.1-0.2); GLUCOSE 130 mg/dL (74-106); PHOSPHORUS 9.8 mg/dL (2.6-4.7); POTASSIUM 4.3 mmol/L (3.5-5.1); SGOT 18 U/L (15-37); SGPT 25 U/L (16-63); SODIUM 138 mmol/L (136-145); TOTAL BILIRUBIN 0.3 mg/dL (0.2-1.0); TOTAL PROTEIN 7.7 g/dL (6.4-8.2)
[2021-01-01 11:11] LABS: CREATININE 21.9 mg/dL (0.7-1.3)
[2021-01-01 13:08] LABS: GLOMERULR BASEM MEMBRN AB 3 units (0-20)
--- NOTE | 2021-01-01 13:17 | NUR ---
MATTEO reviewed chart and spoke with nursing and attending physician. Pt remains in Enhanced Isolation due to COVID. Pt is afebrile and on 4L of O2. Pt has required bipap at nighttime. Pt is on IV abx, IV steroids, IV lasix and Remdesivir. Pt to have kidney bx and placement of dialysis catheter placed today. MATTEO spoke with MATTEO Mena at [facility], regarding arranging pt's outpatient dialysis without having a payor source. Will need approval from [facility] corporate office. Will need clarification on dx: MARYANNE or ESRD and to determine if pt has worked enough quarters to qualify for Medicare. Pt is over assets at this time to meet eligibility criteria for Medicaid. SW to fax additional info to [facility] intake when available. SW placed to call to pt's room. no answer. MATTEO is following to assist as needed with discharge planning.
--- NOTE | 2021-01-01 17:46 | NUR ---
RN ASSUMED PT'S CARE AT 0700AM, PT IS A&OX4, PT HAS DONE IR DIALYSIS TUNNELED PLACEMENT TODAY, THEN PT HAS STARTED DIALYSIS TODAY, REMOVAL 1000ML FLUID, PT IS TOLERATIVE, PT'S VS ARE STABLE, PT IS ON O2 4L/MIN/NC,AND PT USES BIPAP WHEN PT SLEEPING, PT'S O2SAT STAYS AT 92-95%, PT IS GETS UP CHAIR WITH ASSIST, PT DENIES PAIN AND N/V AT DAY SHIFT, PT IS GOING TO HAVE DIALYSIS TOMORROW.
[2021-01-01 20:06] LABS: SYPHILIS AB Non Reactive (Non Reactive)
[2021-01-02 05:00] VITALS: BP 140/88
[2021-01-02 05:33] LABS: CALCIUM 6.6 mg/dL (8.5-10.1); DIRECT BILIRUBIN 0.1 mg/dL (<0.1-0.2); PHOSPHORUS 7.6 mg/dL (2.5-4.9); TOTAL BILIRUBIN 0.3 mg/dL (0.2-1.0); TOTAL PROTEIN 7.9 g/dL (6.4-8.2)
[2021-01-02 06:11] LABS: CREATININE 16.8 mg/dL (0.7-1.3)
--- NOTE | 2021-01-02 06:14 | NUR ---
PT PLACED NPO AT 2400 PER DAY NURSE STATING PT WILL GO FOR BIOPSY ON 01/02. 02 SATURATIONS MAINTAINED VIA NC. PT SLEPT IN CHAIR OVERNIGHT.
[2021-01-02 07:26] VITALS: BP 150/94
--- NOTE | 2021-01-02 14:47 | NUR ---
MATTEO reviewed chart and spoke with nursing and attending physician. Pt remains in Enhanced Isolation due to COVID. Pt is afebrile and on 3L of O2. Pt is on IV abx, IV steroids and IV lasix. Pt to have kidney bx today. Pt has started dialysis. MATTEO placed call to pt's room. No answer. No weekend discharge planned. MATTEO faxed updates to [facility] intake regarding pt's new outpatient dialysis. MATTEO requested copy of Medicaid application from [employer], if available. MATTEO is following to assist as needed with discharge planning.
[2021-01-02 15:20] VITALS: BP 152/93
--- NOTE | 2021-01-02 20:08 | NUR ---
RN ASSUMED PT'S CARE AT 0700-1900PM, PT IS A&OX4, PT IS ON O2 3L-4L/MIN/NC, PT HAS STARTED DIALYSIS 01/01/21, PT STATED DIALYSIS ABOUT 1800PM, PT 'S VS ARE STABLE, PT DENIES PAIN AND SOB AT DAY SHIFT.
[2021-01-03 03:30] LABS: CALCIUM 7.1 mg/dL (8.5-10.1); PHOSPHORUS 7.1 mg/dL (2.5-4.9); POTASSIUM 3.9 mmol/L (3.5-5.1)
[2021-01-03 03:31] LABS: CREATININE 14.4 mg/dL (0.7-1.3)
[2021-01-03 05:00] VITALS: BP 101/79
--- NOTE | 2021-01-03 07:37 | NUR ---
PT MAKING SLOW PROGRESS TOWARDS GOAL. PT STATING THAT HE IS FEELING BETTER AND REPORTS THAT HE FELT LIKE HE WAS IN "A FOG" BEFORE HE STARTED DOING DIALYSIS. ABLE TO WALK THE LENGTH OF THE ROOM ONE TIME WITH SBA.
[2021-01-03 07:42] VITALS: BP 184/102
[2021-01-03 15:24] VITALS: BP 158/94
[2021-01-03 19:52] VITALS: BP 158/98
[2021-01-04 04:18] LABS: ALBUMIN 2.8 g/dL (3.4-5.0); PHOSPHORUS 6.8 mg/dL (2.6-4.7)
[2021-01-04 04:22] LABS: CREATININE 11.7 mg/dL (0.7-1.3)
[2021-01-04 05:45] VITALS: BP 166/106
[2021-01-04 07:36] VITALS: BP 152/89
[2021-01-04 15:30] VITALS: BP 191/118
[2021-01-04 15:49] VITALS: BP 148/86
--- NOTE | 2021-01-04 16:04 | NUR ---
PATIENT OFFERED TWICE TODAY TO ASSIST WITH BEDBATH OR BASIC SELF CARES TODAY, SUCH BRUSHING TEETH. HE REFUSED BOTH TIMES FOR MYSELF AND NURSE PERFORMING ARTS TECHNICIANS.
[2021-01-04 20:00] VITALS: BP 149/93
[2021-01-05 03:13] VITALS: BP 145/87
--- NOTE | 2021-01-05 06:36 | NUR ---
O2 at 3L/NC then CPAP at HS. He slept in the recliner chair. Ambulated to bathroom with steady gait around 0200. He had 10 beat run of vtach , he is asymptomatic. JUDICIAL REPORTER notified. He has been afebrile. Encouraged to use urinal for accurate I/O.
[2021-01-05 07:57] VITALS: BP 214/110
[2021-01-05 09:10] LABS: ALBUMIN 2.7 g/dL (3.4-5.0); CALCIUM 6.4 mg/dL (8.5-10.1); PHOSPHORUS 7.1 mg/dL (2.6-4.7); POTASSIUM 3.7 mmol/L (3.5-5.1)
[2021-01-05 09:15] LABS: CREATININE 14.3 mg/dL (0.7-1.3)
[2021-01-05 15:43] VITALS: BP 159/82
--- NOTE | 2021-01-05 18:14 | NUR ---
ASSUMED PATIENT CARE AT 0700. A/O X4. HAD HD TODAY. 1500ML FLUID MOVED. UP WITH STANDBY ASSIST. SLOWLY TOWARDS POC GOALS.
[2021-01-05 19:27] VITALS: BP 163/91
[2021-01-06 03:53] LABS: ALBUMIN 2.7 g/dL (3.4-5.0); CALCIUM 6.8 mg/dL (8.5-10.1); PHOSPHORUS 5.4 mg/dL (2.5-4.9); POTASSIUM 4.2 mmol/L (3.5-5.1)
--- NOTE | 2021-01-06 03:59 | NUR ---
cpap tonight while resting in the chair. no discharge concerns voiced. encouraged him to keep his feet elevated while in the chair.
[2021-01-06 04:30] LABS: CREATININE 9.9 mg/dL (0.7-1.3)
[2021-01-06 05:12] VITALS: BP 158/101
[2021-01-06 08:15] VITALS: BP 158/97
--- NOTE | 2021-01-06 16:25 | NUR ---
MATTEO reviewed chart and spoke with nursing and attending physician. Pt remains in Enhanced Isolation due to COVID. Pt is afebrile and on 3L of O2. Pt remains on IV abx and IV steroids. Pt has started dialysis. MATTEO spoke with Saima in intake at [facility], who states that their corporate office is reviewing pt's info regarding establishing outpatient dialysis, as pt does not have health insurance. MATTEO is following to assist as needed with discharge planning.
[2021-01-06 17:18] VITALS: BP 159/86
[2021-01-06 19:45] VITALS: BP 139/92
--- NOTE | 2021-01-06 19:52 | NUR ---
ASSUMED PATIENT CARE AT 0700. A/O X4. DENIES PAIN. UP AD MERLE. PROGRESSING TOWARDS POC GOALS.
--- NOTE | 2021-01-06 23:22 | NUR ---
PROGRESS PT A/O X4, UP AD MERLE. ON 3 LITERS O2 VIA NC AND BIPAP AT HS AND PRN. PT ABLE TO MANAGE BOTH INDEPENDENTLY. IS VERY ALOOF WITH STAFF, WILL PRETEND TO SLEEP AND NOT RESPOND TO QUESTIONS AT TIMES, AND IS COOPERATIVE AT OTHER TIMES. UP IN CHAIR MOST OF SHIFT WITH BIPAP IN PLACE SATS REMAIN IN MID 90'S. CONTINUE POC.
[2021-01-07 04:06] VITALS: BP 175/99
[2021-01-07 07:57] VITALS: BP 162/100
[2021-01-07 08:06] LABS: ALBUMIN 2.6 g/dL (3.4-5.0); CALCIUM 6.9 mg/dL (8.5-10.1); PHOSPHORUS 6.9 mg/dL (2.5-4.9); POTASSIUM 3.9 mmol/L (3.5-5.1)
[2021-01-07 08:08] LABS: CREATININE 12.5 mg/dL (0.7-1.3)
[2021-01-07 15:23] VITALS: BP 130/70
--- NOTE | 2021-01-07 15:46 | NUR ---
MATTEO reviewed chart and spoke with nursing and attending physician. Pt remains in Enhanced Isolation due to COVID. Pt is afebrile and on 3L of O2. Pt is on IV abx and IV steroids. MATTEO spoke with plate grainer apprentice regarding outpatient dialysis. [facility] is unable to accept pt at this time. Dr. Becerril spoke with corporate office. MATTEO contacted intake at [facility] and spoke with Christiana. MATTEO faxed referral to [facility] for review. MATTEO placed call to pt's room. No answer. MATTEO left voice message on pt's cell phone: [phone]. Requested call back to discuss discharge plan. Hep B Core Total AB and Hep B Surface AB labs ordered per [facility] requirements. MATTEO is following to assist as needed with discharge planning.
--- NOTE | 2021-01-07 16:27 | NUR ---
PT IS ALERT AND ORIENTED X4. PT IS TOLERATING 3L NC WELL WITH PRN BIPAP. PT TOLERATED DIALYSIS TODAY. NO CURRENT COMPLAINTS. PT HAS BEEN SR AND SB ON THE MONITOR. PT DOES HAVE INTERMITTENT, NON-PRODUCTIVE COUGH.
[2021-01-07 19:50] VITALS: BP 113/67
[2021-01-08 04:54] VITALS: BP 124/71
[2021-01-08 08:26] VITALS: BP 129/86
[2021-01-08 09:08] LABS: HEPATITIS B SURFACE AG Negative (Negative)
--- NOTE | 2021-01-08 13:30 | NUR ---
MATTEO reviewed chart and spoke with nursing and attending physician. Pt remains in Enhanced Isolation due to COVID. Pt is afebrile and on 3L of O2. Pt is on IV steroids. MATTEO received voice message from Bj at [facility] intake, who states they received new referral and are reviewing info. MATTEO also discussed case with Saima in intake at [facility] to follow up. MATTEO contacted [employer] regarding Medicaid application/Medicare application. [employer] has sent pt's Medicaid application to MATTEO. MATTEO faxed to [facility] for review. [employer] is applying for SSI/SSDI today and looking at Medicare process on pt's behalf. MATTEO spoke with pt via phone to discuss process for establishing outpatient dialysis. Pt verbalized understanding. MATTEO asked pt about his work history. Pt must meet eligibility requirements for Medicare. Pt states he is unsure how long he has been employed through an employer. MATTEO discussed case with Zara. MATTEO updated painting manager. MATTEO is following to assist as needed with discharge planning.
--- NOTE | 2021-01-08 14:40 | NUR ---
PT IS A&Ox4. PT DENIES ANY PAIN AND IS READY TO GO HOME. PT HAS BEEN WEARING 3L NC AND HAS BEEN EATING MORE TODAY. PT HAS 2+ EDEMA TO BLE.
[2021-01-08 16:20] VITALS: BP 185/101
[2021-01-08 20:20] VITALS: BP 149/76
[2021-01-09 04:45] VITALS: BP 161/93
[2021-01-09 07:39] VITALS: BP 168/88
[2021-01-09 15:37] VITALS: BP 169/69
--- NOTE | 2021-01-09 15:38 | NUR ---
MATTEO reviewed chart and spoke with nursing and attending physician. Pt remains in Enhanced Isolation due to COVID. Pt is afebrile and on 3L of O2. Pt is on IV steroids. MATTEO spoke with Saima at [facility] intake who states they are not able to accept pt at this time. The corporate office will not approve to take an uninsured pt at this time. MATTEO faxed Hep labs to [facility] and spoke with intake to confirm info was received. MATTEO received financial form for pt to complete, to send back to [facility] for review. Will need this info in order to finalize outpatient dialysis. MATTEO placed call to pt's room. No answer. MATTEO faxed financial form to the nurses station. Form can be faxed back to or to [facility] once completed. MATTEO updated application development team lead. No weekend discharge anticipated. MATTEO is following to assist as needed with discharge planning. [facility]--
--- NOTE | 2021-01-09 19:28 | NUR ---
RN ASSUMED PT'S CARE AT 0700-1900PM, PT IS A&OX4, PT IS ON ROOM AIR , PT'S VS ARE STABLE AT DAY SHIFT, PT FINISHED HIS DAILYSIS ABOUT 1800PM, REMOVAL 1500ML FLUID, PT IS TOLERAIVE, PT DENIES PAIN AND SOB AT DAY SHIFT.
[2021-01-09 19:59] VITALS: BP 149/75
[2021-01-09 21:06] LABS: COMPLEMENT-C3 145 mg/dL (82-167); COMPLEMENT-C4 39 mg/dL (12-38)
[2021-01-10 05:34] VITALS: BP 152/99
[2021-01-10 07:16] VITALS: BP 163/80
[2021-01-10 15:10] VITALS: BP 153/77
--- NOTE | 2021-01-10 19:28 | NUR ---
RN ASSUMED PT'S CARE AT 0700-1900PM, PT IS A&OX4, PT IS ON ROOM AIR , PT'S VS AND O2SAT ARE STABLE, PT DENIES PAIN AND SOB AT DAY SHIFT, PT IS CONTINUING TREAT COVID AND DIALYSIS .
[2021-01-11 05:34] VITALS: BP 163/94
[2021-01-11 07:38] VITALS: BP 150/83
[2021-01-11 09:30] VITALS: BP 139/83
[2021-01-11 15:57] VITALS: BP 139/83
--- NOTE | 2021-01-11 16:45 | NUR ---
RN ASSUMED PT'S CARE AT 0700AM, PT IS A&OX4, PT IS ON ROOM AIR , PT'S VS ARE STABLE, BUT PT IS ON BIPAP 02 30% WHEN HE IS SLEEPING, PT IS CONTINUING COVID ISOLATION, PT LIKE TO SIT IN CHAIR, PT DENIES PAIN BY THIS TIME.
[2021-01-11 20:24] VITALS: BP 152/85
--- NOTE | 2021-01-12 04:29 | NUR ---
Patient has progressed towards outcome goals. Oxygenation optimal on room air, tolerating CPAP at night. Dialysis orders for today. Discharge pending finding outpatient dialysis. Up to bed/chair without difficulty.
[2021-01-12 07:46] VITALS: BP 186/102
[2021-01-12 09:09] VITALS: BP 165/78
--- NOTE | 2021-01-12 14:18 | NUR ---
MATTEO reviewed chart and spoke with nursing and attending physician. Pt remains in Enhanced Isolation due to COVID. Pt is afebrile and on room air. Pt has been using bipap at . MATTEO received completed financial ppwk from pt. MATTEO faxed to [facility] for review. MATTEO placed call to [facility] and spoke with Anamaria. Financial ppwk to be reviewed once processed. Pt will be able to discharge home once outpatient dialysis has been scheduled and confirmed. MATTEO received call back from El at [facility] who confirms info was received and they will start looking for available chair times. MATTEO is following to assist as needed with discharge planning.
[2021-01-12 18:15] VITALS: BP 175/82
--- NOTE | 2021-01-12 19:41 | NUR ---
RN ASSUMED PT'S CARE AT 0700-1900PM, PT IS A&OX4, PT 'S VS ARE STABLE, PT NEEDS BIPAP O2 30% WHEN HE IS SLEEPING, PT DENIES PAIN AND SOB, PT IS TOLERATVE DIALYSIS TODAY, REMOVAL 1500ML FLUID, PT CAN WALK IN HIS ROOM WITHOUT ASSIST.
[2021-01-12 20:31] VITALS: BP 150/78
--- NOTE | 2021-01-13 04:19 | NUR ---
Pt. slept in recliner chair with CPAP on otherwise he's in RA when not using CPAP. No respiratory distress. Cont. on enhanced precaution , afebrile. Up ad velia in room with steady gait. Making some progress towards care plan goals.
[2021-01-13 04:56] VITALS: BP 143/75
[2021-01-13 07:40] VITALS: BP 175/94
[2021-01-13] MEDS ORDERED: COZAAR 50 MG TA50 MG PO (13:13)
[2021-01-13] MEDS ORDERED: SODIUM BICARBO650 M3 PO (13:13)
[2021-01-13] MEDS ORDERED: CARVEDILOL12.5 MG PO (13:13)
[2021-01-13] MEDS ORDERED: PREDNISONE 20 M20 M1 PO (13:13)
--- NOTE | 2021-01-13 14:28 | NUR ---
MATTEO reviewed chart and spoke with nursing and attending physician. Pt remains in Enhanced Isolation. Pt is afebrile and on 3L of O2. MATTEO spoke with pt via phone to obtain additional info for [facility] regarding pt's work history. MATTEO spoke with El at [facility] central intake to provide update. Working on confirming a chair time that will accommodate pt's work schedule from [id number]. MATTEO was notified by tech that pt's Medicare should be active as of 03/02. [place]. Pt's Blue Cross/Blue Shield will be active as of 01/30. Info regarding policy has been provided to [facility] RN. Awaiting confirmation of outpatient dialysis. MATTEO requested rest/exercise oximetry to be completed to see if pt needs home O2 when discharged. MATTEO is following to assist as needed with discharge planning.
[2021-01-13 16:37] VITALS: BP 187/89
--- NOTE | 2021-01-13 18:42 | NUR ---
PT REQUESTED ASSISTANCE WITH FORM FOR MEDICARE. 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 CM AWARE. PT IS LOOKING FORWARD TO DISCHARGE, DIALYSIS ORDER PLACED FOR 01/14/21. PT HAS NO OTHER CONCERNS AT THIS TIME.
[2021-01-13 20:25] VITALS: BP 137/68
--- NOTE | 2021-01-14 04:50 | NUR ---
Pt. slept fair during the night in recliner chair. Up ad velia in room with steady gait. Cont. on enhanced precaution , afebrile. Tolerating room air well with O2 sat in the upper 90's. CPAP while asleep. Denies any concern at this time. Progressing towards discharge goals.
[2021-01-14 05:37] VITALS: BP 151/74
[2021-01-14 09:00] VITALS: BP 166/87
--- NOTE | 2021-01-14 12:09 | NUR ---
SW reviewed chart and spoke with nursing and attending physician. Pt remains in Enhanced Isolation due to COVID. Pt is afebrile and on room air. Pt is medically stable for discharge pending confirmation of outpatient dialysis arrangements. MATTEO placed call to [facility] Intake. Left message for Bj, who is coordinating dialysis. At this time, the [facility] is reviewing pt's info for a T-R-S 1200 chair time. SW placed call to pt's room to provide update. Pt is very upset that his dialysis has not yet been confirmed and is wanting to discharge today. MATTEO explained that [facility] has all the info and it is on them to schedule his dialysis. Pt verbalized understanding. SW is following to assist as needed with discharge planning.
[2021-01-14 15:26] VITALS: BP 166/87
[2021-01-14 17:07] VITALS: BP 166/87
--- NOTE | 2021-01-14 19:52 | NUR ---
RN ASSUMED PT'S CARE AT 0700PM-1730PM, PT WAS A&OX4, PT'S VS WAS STABLE, PT DENIED PAIN AND SOB, BUT PT REFUSED HD DIALYSIS TODAY, RN HAD NOTIFIED HOSPITAL DR AND RENAL DR ABOUT PT'S REFUSED DIALYSIS TODAY, RN RECEIVED ORDER TO DC PT TO HOME TODAY, PT UNDERSTANDED DC TEACHING WELL , INCLUDING F/U RENAL DR /DIALYSIS AND COVID ISOLATION UNTILL TOTAL 3WEEKS . PT WAS GOING AT 1730PM BY HOSPITAL PROVIDE ZTRIP CAR.
== END 2021-01-14 17:48 | disposition home or self-care (01) | DRG 177 ==
LOC: ER 09:49 → EROBS 13:43 → 3W 15:30
PROVIDERS: Emergency Medicine; Internal Medicine Nephrology; Specialist; ADMIT Hospitalist; ATTEND Hospitalist
PROC: XW033E5 Introduction of Remdesivir Anti-infective into Peripheral Vein, Percutaneous Approach, New Technology Group 5 (ICD-10-PCS; principal; 2020-12-28)
PROC: 5A09357 Assistance with Respiratory Ventilation, Less than 24 Consecutive Hours, Continuous Positive Airway Pressure (ICD-10-PCS; 2020-12-29)
PROC: 5A09357 Assistance with Respiratory Ventilation, Less than 24 Consecutive Hours, Continuous Positive Airway Pressure (ICD-10-PCS; 2020-12-30)
PROC: 5A0935A Assistance with Respiratory Ventilation, Less than 24 Consecutive Hours, High Flow/Velocity Cannula (ICD-10-PCS; 2020-12-31)
PROC: 5A09357 Assistance with Respiratory Ventilation, Less than 24 Consecutive Hours, Continuous Positive Airway Pressure (ICD-10-PCS; 2020-12-31)
PROC: 5A1D70Z Performance of Urinary Filtration, Intermittent, Less than 6 Hours Per Day (ICD-10-PCS; 2021-01-01)
PROC: 5A09357 Assistance with Respiratory Ventilation, Less than 24 Consecutive Hours, Continuous Positive Airway Pressure (ICD-10-PCS; 2021-01-01)
PROC: 02HV33Z Insertion of Infusion Device into Superior Vena Cava, Percutaneous Approach (ICD-10-PCS; 2021-01-01)
PROC: B5181ZA Fluoroscopy of Superior Vena Cava using Low Osmolar Contrast, Guidance (ICD-10-PCS; 2021-01-01)
PROC: B548ZZA Ultrasonography of Superior Vena Cava, Guidance (ICD-10-PCS; 2021-01-01)
PROC: 0JH63XZ Insertion of Tunneled Vascular Access Device into Chest Subcutaneous Tissue and Fascia, Percutaneous Approach (ICD-10-PCS; 2021-01-01)
PROC: 5A09357 Assistance with Respiratory Ventilation, Less than 24 Consecutive Hours, Continuous Positive Airway Pressure (ICD-10-PCS; 2021-01-02)
PROC: 5A1D70Z Performance of Urinary Filtration, Intermittent, Less than 6 Hours Per Day (ICD-10-PCS; 2021-01-02)
PROC: 5A1D70Z Performance of Urinary Filtration, Intermittent, Less than 6 Hours Per Day (ICD-10-PCS; 2021-01-03)
PROC: 5A09357 Assistance with Respiratory Ventilation, Less than 24 Consecutive Hours, Continuous Positive Airway Pressure (ICD-10-PCS; 2021-01-03)
PROC: 5A09357 Assistance with Respiratory Ventilation, Less than 24 Consecutive Hours, Continuous Positive Airway Pressure (ICD-10-PCS; 2021-01-04)
PROC: 5A09357 Assistance with Respiratory Ventilation, Less than 24 Consecutive Hours, Continuous Positive Airway Pressure (ICD-10-PCS; 2021-01-05)
PROC: 5A09357 Assistance with Respiratory Ventilation, Less than 24 Consecutive Hours, Continuous Positive Airway Pressure (ICD-10-PCS; 2021-01-06)
PROC: 5A09357 Assistance with Respiratory Ventilation, Less than 24 Consecutive Hours, Continuous Positive Airway Pressure (ICD-10-PCS; 2021-01-07)
PROC: 5A09357 Assistance with Respiratory Ventilation, Less than 24 Consecutive Hours, Continuous Positive Airway Pressure (ICD-10-PCS; 2021-01-08)
PROC: 5A1D70Z Performance of Urinary Filtration, Intermittent, Less than 6 Hours Per Day (ICD-10-PCS; 2021-01-09)
PROC: 5A09357 Assistance with Respiratory Ventilation, Less than 24 Consecutive Hours, Continuous Positive Airway Pressure (ICD-10-PCS; 2021-01-10)
PROC: 5A09357 Assistance with Respiratory Ventilation, Less than 24 Consecutive Hours, Continuous Positive Airway Pressure (ICD-10-PCS; 2021-01-13)
PROC: 5A1D70Z Performance of Urinary Filtration, Intermittent, Less than 6 Hours Per Day (ICD-10-PCS; 2021-01-14)
DX: U07.1 COVID-19 (principal); J12.82 Pneumonia due to coronavirus disease 2019; J96.01 Acute respiratory failure with hypoxia; N18.6 End stage renal disease; N17.9 Acute kidney failure, unspecified; Z68.43 Body mass index [BMI] 50.0-59.9, adult; I12.0 Hypertensive chronic kidney disease with stage 5 chronic kidney disease or end stage renal disease; G47.33 Obstructive sleep apnea (adult) (pediatric); E66.01 Morbid (severe) obesity due to excess calories; R60.1 Generalized edema; E87.70 Fluid overload, unspecified; Z88.0 Allergy status to penicillin; Z88.8 Allergy status to other drugs, medicaments and biological substances; Z86.711 Personal history of pulmonary embolism
CPT/HCPCS: 10879; 32100

== ENCOUNTER 2021-01-15 12:52 | Inpatient (IN) | payer OTHER ==
[~2021-01-15] VITALS: Ht 167.6 cm; Wt 157.8 kg
[~2021-01-15 12:52] MED LIST changes: +COZAAR 50 MG TA50 MG PO; +PREDNISONE 20 M20 M1 PO; +SODIUM BICARBO650 M3 PO
[2021-01-15 12:53] VITALS: BP 106/48
[2021-01-15 13:58] LABS: CALCIUM 7.5 mg/dL (8.5-10.1); CREATININE 12.3 mg/dL (0.7-1.3); POTASSIUM 4.3 mmol/L (3.5-5.1)
[2021-01-15 14:22] LABS: ABSOLUTE NEUTROPHILS 2.2 thou/uL (1.4-8.2); BASOPHILS 0.6 % (0.0-2.0); EOSINOPHILS 2.4 % (0.0-3.0); HEMATOCRIT 21.5 % (42.0-52.0); HEMOGLOBIN 7.4 gm/dL (14.0-18.0); LYMPHOCYTES 20.3 % (24.0-44.0); MCH 29.3 pg (26.0-34.0); MCHC 34.4 g/dL (28.0-37.0); MCV 85.3 fL (80.0-100.0); MONOCYTES 19.2 % (1.0-8.0); PLATELET COUNT 194 thou/uL (150-400); POLYS 57.5 % (36.0-66.0); RBC 2.52 mil/uL (4.50-6.00); RDW 13.1 % (10.5-14.5); WBC 3.9 thou/uL (4.0-11.0)
[2021-01-15 15:38] LABS: % SATURATION 33 % (20-39); IRON 59 ug/dL (65-175); TIBC 177 ug/dL (250-450)
[2021-01-15 15:43] LABS: ABSOLUTE RETIC COUNT 0.0238 10^6/uL; OBSERVED RETIC COUNT 0.95 % (0.6-2.6)
[2021-01-15 16:02] LABS: HEMATOCRIT 24.4 % (42.0-52.0); HEMOGLOBIN 8.4 gm/dL (14.0-18.0)
[2021-01-15 19:33] VITALS: BP 168/88
--- NOTE | 2021-01-16 07:23 | EKG ---
[place] [address] [facility] [place] [address] ELECTROCARDIOGRAM REPORT Name: RANDAL PITT Room #: 170-6 [place] M.R.#: [id number] Admission: 01/15/21 Attend Phys: Cristal Gentile Discharge: 01/15/21 Date of : 79 Report #: [id number] [facility] ED Test Date: 2021-01-15 Test Time: 12:55:05 Pat Name: RANDAL PITT Department: Room: 170 Gender: M Manager Personal: REKHA : 1975 Requested By: Sandro Franks Order Number: [id number] MD: Humberto Ford Measurements Intervals [place] Rate: 75 P: 55 UT: 147 QRS: 54 QRSD: 89 T: 2 QT: 490 QTc: 548 Interpretive Statements Sinus rhythm Probable left atrial enlargement Borderline T abnormalities, inferior leads Compared to ECG 12/28/2020 10:43:35 Poor R-wave progression no longer present T-wave abnormality still present Electronically Signed On 01-16-2021 7:22:44 CDT by Humberto Ford [email or web address] <ELECTRONICALLY SIGNED> By: Humberto Ford MD, [facility] 01/16/21 0722 1255 [id number] Humberto Ford MD, [facility] /EPI
--- NOTE | 2021-01-16 09:24 | NUR ---
Of note upon ED note of 01-15-21: Patient was told multiple times that at his current state of "Patient Pay" all efforts were being made daily for the patient to get into [facility] and they were contacted daily and CM was daily looking for a chair time in one of their clinics. I spoke with the patient on the day of his insisted discharge (01-14-21) where security was called to the unit for behavior and his refusal for dialysis on 01-14 and patient stated: "I can wait till I get my insurance and I am leaving". Spoke with candy decorator and attending and patient was discharged refusing dialysis and multiple requests for him to stay until a chair time could be found. Patient was also informed that [facility] would be calling him to follow up and the number for [facility] was given to the patient. Again, the patient was not told to "go wherever" rather to stay until chair time could be arranged and patient refused and was subsequently discharged.
== END 2021-01-15 20:12 | disposition home or self-care (01) | DRG 314 ==
LOC: ER 12:52 → EROBS 15:47
PROVIDERS: Student in an Organized Health Care Education/Training Program; ADMIT Hospitalist; ATTEND Hospitalist
DX: I95.9 Hypotension, unspecified (principal); U07.1 COVID-19; N18.6 End stage renal disease; I12.0 Hypertensive chronic kidney disease with stage 5 chronic kidney disease or end stage renal disease; Z79.899 Other long term (current) drug therapy; Z88.0 Allergy status to penicillin; Z88.8 Allergy status to other drugs, medicaments and biological substances; D64.89 Other specified anemias; Z99.2 Dependence on renal dialysis; D57.3 Sickle-cell trait